=== PATIENT | male | born 1970 | race Caucasian/White ===

== ENCOUNTER → 2018-09-09 | Outpatient (CLI) | payer OTHER ==
[~2018-09-09] VITALS: Ht 170.2 cm; Wt 89.8 kg
[~2018-09-09] MED LIST: CYCL10TA9 PO; ESOM40CA52 PO; GABA-488 PO; HYDR-3820 PO; PANT40TA3 PO; PRAM0.5T2 PO
== END | disposition home or self-care (01) ==
LOC: PREOP 09-08 05:43
PROVIDERS: ATTEND Pediatrics
DX: Z01.818 Encounter for other preprocedural examination (principal)

== ENCOUNTER 2018-09-15 07:16 | Day surgery (SDC) | payer MEDICAID, OTHER ==
[~2018-09-15] VITALS: Ht 170.2 cm; Wt 89.8 kg
[2018-09-15] VITALS (12 sets, daily range): BP systolic 100–130; BP diastolic 55–75
[~2018-09-15 07:16] MED LIST changes: +NS IV 500 ML 500 ML ONE
[2018-09-15] MEDS ORDERED: NS IV 500 ML 500 ML IV PRN (07:25)
[2018-09-15] MEDS ORDERED: MIDAZOLAM 2 MG/2 ML (VERSED) VIAL IVP ONE (07:30)
[2018-09-15] MEDS ORDERED: fentaNYL INJECTION 100 MCG/2 ML AMP IVP ONE (07:30)
[2018-09-15] MEDS ORDERED: fentaNYL INJECTION 100 MCG/2 ML AMP ONE (07:43)
[2018-09-15] MEDS ORDERED: MIDAZOLAM 2 MG/2 ML (VERSED) VIAL ONE ×3 (07:44→08:02)
--- NOTE | 2018-09-15 08:05 | Progress Note-Pre Operative ---
Pre-Operative Progress Note H&P Reviewed The H&P was reviewed, patient examined and no changes noted. Date Seen by Provider: Sep 15, 2018 Time Seen by Provider: 08:05 Date H&P Reviewed: Sep 15, 2018 Time H&P Reviewed: 08:05 Pre-Operative Diagnosis: abdominal pain SAMIRA MAKI MD Sep 15, 2018 08:05
--- NOTE | 2018-09-15 08:25 | Endoscopy Procedure Report ---
Colonoscopy Procedure Performed: Colonoscopy Pre-Operative Diagnosis: screening for family h/o colon cancer and abdominal pain Post-Operative Diagnosis: same Solution Lead: None. Indications for Procedure: as above Procedure Details: Informed consent was obtained, the risks, benefits and alternatives to the procedure were explained to the patient. The Jelani CornellSr, a 48 yr old male, was brought to to surgery area, sedated with 6 mg of Versed and 100 ug of fentanyl. He was placed in the left lateral decubitus position. Under direct visualization the scope was passed easily to the cecum. Cecum is identified by landmarks. Scope was carefully withdrawn. Findings: Ascending Colon: none Transverse Colon: none Descending/Sigmoid: small polyp cold biopsy and then cautery destroyed at 20 cm from anal verge Rectum: none Estimated Blood Loss: 0mL Specimens: polyp Complications: None; patient tolerated the procedure well. Final Diagnosis: small sigmoid polyp SAMIRA MAKI MD Sep 15, 2018 08:25
== END 2018-09-15 09:10 | disposition home or self-care (01) ==
LOC: ENDO 07:16
PROVIDERS: ATTEND Pediatrics
DX: Z12.11 Encounter for screening for malignant neoplasm of colon (principal); D12.7 Benign neoplasm of rectosigmoid junction; K21.9 Gastro-esophageal reflux disease without esophagitis; G25.81 Restless legs syndrome; Z80.0 Family history of malignant neoplasm of digestive organs
CPT/HCPCS: 88305

== ENCOUNTER 2018-10-04 06:36 | Outpatient (CLI) | payer MEDICAID ==
[~2018-10-04] VITALS: Ht 170.2 cm; Wt 89.8 kg
[~2018-10-04 06:36] MED LIST changes: -NS IV 500 ML 500 ML ONE
== END 2018-10-04 13:22 | disposition home or self-care (01) ==
LOC: PREOP 06:36
PROVIDERS: ATTEND Pediatrics
DX: Z01.818 Encounter for other preprocedural examination (principal)